=== PATIENT | female | born 1955 | race Caucasian/White ===

== ENCOUNTER 2017-05-05 14:03 | Emergency (ER) | payer MEDICARE ==
[2017-05-05] MEDS ORDERED: MOTRIN 600 MG PO ONE (14:09)
[2017-05-05] MEDS ORDERED: MOTRIN 600 MG ONE (14:15)
--- NOTE | 2017-05-05 14:15 | ERPHSYRPT ---
- History of Present Illness Time Seen by Provider: 05/05/17 14:05 Source: patient Exam Limitations: no limitations Physician History: developed pain in left foot while walking thru trailer recently; no known injury ; no prior hx; no other complaints; pain increased when walks on or flexes; ; no fever Method of Injury: unknown Occurred: yesterday Quality: constant (with wt bearing only), intermittent (only when bears wt on it.), burning Severity of Pain-Max: severe (when wt bearing) Severity of Pain-Current: none (at rest and elevated) Lower Extremities Pain: foot: left (medial aspect) Modifying Factors: Improves With: cold therapy (helps), immobilization (helps), movement (aggravates) Associated Symptoms: unable to bear weight (without severe pain) Allergies/Adverse Reactions: oxytetracycline [From Terramycin] Allergy (Mild, Verified 05/05/17 14:17) oxytetracycline HCl [From Terramycin] Allergy (Mild, Verified 05/05/17 14:17) amoxicillin trihydrate [From Augmentin] Adverse Reaction (Mild, Verified 14:17) HIVES potassium clavula *RETIRED-02/03/13 [From Augmentin] Adverse Reaction (Mild, Verified 05/05/17 14:17) HIVES Home Medications: Albuterol 17 gm IH UD 05/05/17 [History] Hx Tetanus, Diphtheria Vaccination/Date Given: No - Review of Systems Constitutional: No Symptoms Eyes: No Symptoms Ears, Nose, & Throat: No Symptoms Respiratory: No Cough, No Dyspnea, No Wheezing Cardiac: No Chest Pain, No Palpitations, No Syncope Abdominal/Gastrointestinal: No Abdominal Pain, No Nausea, No Vomiting, No Diarrhea Genitourinary Symptoms: No Symptoms Musculoskeletal: Injury (? left foot- unknown how), Joint Pain (medial aspect left foot proximal) Skin: No Symptoms Neurological: No Symptoms Psychological: No Symptoms Endocrine: No Symptoms Hematologic/Lymphatic: No Symptoms Immunological/Allergic: No Symptoms - Past Medical History Pertinent Past Medical History: Yes Respiratory History: COPD Endocrine Medical History: Diabetes Type II Musculoskeletal History: Arthritis, Osteoarthritis, Osteoporosis - Past Surgical History Past Surgical History: Yes Musculoskeletal: Orthopedic Surgery Female Surgical History: Tubal Ligation - Social History Smoking Status: Current every day smoker Exposure to second hand smoke: Yes Alcohol Use: None Drug Use: none Patient Lives Alone: Yes Significant Family History: diabetes, hypertension - Female History Hx Now: No - Nursing Vital Signs Nursing Vital Signs: Initial Vital Signs Temperature 98.3 F 05/05/17 14:12 Pulse Rate 85 05/05/17 14:12 Respiratory Rate 22 05/05/17 14:12 Blood Pressure 166/88 05/05/17 14:12 O2 Sat by Pulse Oximetry 96 05/05/17 14:12 Pain Scale Pain Intensity 5 - Physical Exam General Appearance: mild distress (pasin left foot ), alert, obese Eyes, Ears, Nose, Throat Exam: normal ENT inspection, pharynx normal, moist mucous membranes Neck Exam: normal inspection, non-tender, supple, full range of motion, No JVD Cardiovascular/Respiratory Exam: chest non-tender, normal breath sounds, regular rate/rhythm, heart sounds normal, no ecchymosis, no JVD, no M/R/G, no respiratory distress Gastrointestinal/Abdominal Exam: non-tender, soft, no organomegaly Back Exam: normal inspection, normal range of motion, No CVA tenderness Hips Exam: bilateral: non-tender, normal inspection, normal range of motion, no evidence of injury Legs Exam: bilateral leg: non-tender, normal inspection, normal range of motion , no evidence of injury Knees Exam: bilateral knee: non-tender, normal inspection, normal range of motion, no evidence of injury Ankle Exam: right ankle: normal range of motion, left ankle: limited range of motion (ankle due to pain in the foot), bilateral ankle: non-tender, normal inspection, no evidence of injury Foot Exam: right foot: non-tender, normal inspection, normal range of motion, no evidence of injury, left foot: bone tenderness (medial aspect), pain (medial left foot), soft tissue tenderness (medial left foot), swelling (medial left foot) DTR - Lower Extremities Exam: knee (R): 4+, knee (L): 4+ Neuro/Tendon Exam: normal sensation, normal motor functions, normal tendon functions, responds to pain, no evidence tendon injury Mental Status Exam: alert, oriented x 3, cooperative Skin Exam: normal color, warm, dry, No rash Procedures - Splinting Location of Splint: Left, Foot Type of Splint: Other (shi wrap and crutches) Splint Applied By: Other Pre-Proc Neuro Vasc Exam: normal Post-Proc Neuro Vasc Exam: neurovascular intact - Course Nursing assessment & vital signs reviewed: Yes - Radiology Exams Left Foot X-ray Interpretation: Interpreted by me, No Fracture, Other (DJD; osteoarthritis medial aspect distal tibia/foot; ) Ordered Tests: Active Orders 24 hr Category Date Time Status Cold Application STAT Care 05/05/17 14:09 Active Crutches STAT Care 05/05/17 14:34 Ordered Splint STAT Care 05/05/17 14:34 Ordered FOOT (MINIMUM 3 VIEWS) Stat Exams 05/05/17 14:09 Taken Medication Summary Discontinued Medications Generic Name Dose Route Start Last Admin Trade Name Freq PRN Reason Stop Dose Admin Ibuprofen 600 mg 05/05/17 14:09 05/05/17 14:17 Motrin 600 Mg PO 05/05/17 14:10 600 mg STAT ONE Administration Ibuprofen Confirm 05/05/17 14:15 Motrin 600 Mg Administered 05/05/17 14:16 Dose 600 mg .ROUTE .STK-MED ONE - Progress Progress: re-examined (after meds and ex) Progress Note: 05/05/17 14:17 ice applied; meds given; will get xr and recheck 05/05/17 14:37 recheck after xr; results and instructions given, shi wrap and cruthes wit instructions Counseled pt/family regarding: diagnosis, rad results, smoking cessation - Departure Time of Disposition: 14:38 Departure Disposition: Home Clinical Impression: Osteoarth NOS-ankle Condition: Stable Critical Care Time: No Instructions: Foot Pain Additional Instructions: crutches; ice; no wt bearing 48-72 hours; follow up Dr Tri Helm Follow-up with family doctor as directed. Call for appointment. Return if any problems. If you smoke please stop. Call or follow up with your family doctor for assistance if you need it to stop. Please wear your seatbelt when driving. Have a nice day. Thank you for allowing us to participate in your care today. :o) Dr Chintan Arnold Prescriptions: Naproxen Sodium [Anaprox Ds] 550 mg PO Q6-8HPRN PRN #14 tablet PRN Reason: Pain
[2017-05-05 14:43] VITALS: BP 157/83; PULSE 78; O2SAT 95
--- NOTE | 2017-05-05 14:53 | XRAY ---
Indication: Medial foot pain following injury 3 days ago. Comparison: None 3 nonweightbearing views of the left foot demonstrates tiny heel spurs, mild 1st MTP DJD, cuboid accessory ossicle, and medial malleolar tip well-circumscribed ossifications either degenerative versus old injury. No other bony, articular, or soft tissue abnormalities.
== END 2017-05-05 14:46 | disposition home or self-care (01) ==
LOC: ED 14:03
DX: M19.079 Primary osteoarthritis, unspecified ankle and foot (principal); M79.672 Pain in left foot; J44.9 Chronic obstructive pulmonary disease, unspecified
CPT/HCPCS: 73630; 99282; 99283; A9270-GY

== ENCOUNTER 2018-07-03 19:59 | Emergency (ER) | payer MEDICARE ==
--- NOTE | 2018-07-03 20:03 | ERPHSYRPT ---
- History of Present Illness Time Seen by Provider: 07/03/18 20:03 Source: patient, family Exam Limitations: no limitations Physician History: 63 y/o white female with h/o copd, recurrent bronchitis and pneumonia and continues to smokepresents with cough and fever for last few days. pt has intermittently been on prednisone and levaquin on two occasions for tx of pneumonia per pt. Timing/Duration: day(s) (a few ) Cough Quality/Degree: mild, productive cough (greeenish sputum) Possible Cause: occasional episodes Modifying Factors: Improves With: coughing, other (increase in her smoking recently) Associated Symptoms: fever, cough, No chills, No shortness of breath, No sore throat, No wheezing Allergies/Adverse Reactions: oxytetracycline [From Terramycin] Allergy (Mild, Verified 07/03/18 20:21) oxytetracycline HCl [From Terramycin] Allergy (Mild, Verified 07/03/18 20:21) amoxicillin trihydrate [From Augmentin] Adverse Reaction (Mild, Verified 20:21) HIVES potassium clavula *RETIRED-02/03/13 [From Augmentin] Adverse Reaction (Mild, Verified 07/03/18 20:21) HIVES Home Medications: Albuterol Sulfate [Proair Hfa] 1 puffs IH QID PRN 07/03/18 [History] Aspirin EC 81 mg [Ecotrin 81 mg] 81 mg PO DAILY 07/03/18 [History] Atorvastatin Calcium [Lipitor] 10 mg PO DAILY 07/03/18 [History] Ca/D3/Mag Ox/Zinc/Maritime Pilot/Patel/Bor [Calcium 600+D3 Plus Caplet] 1 each PO BID [History] Fish Oil/Dha/Epa [Fish Oil 1,200 mg Fish Oil] 1 cap PO DAILY 07/03/18 [History] Fluticasone/Umeclidin/Vilanter [Trelegy Ellipta 100-62.5-25] 1 each IH DAILY [History] Ipratropium/Albuterol Sulfate [Iprat-Albut 0.5-3(2.5) mg/3 ml] 3 ml IH QID PRN 07/03/18 [History] Levocetirizine Dihydrochloride [24Hr Allergy Relief] 5 mg PO DAILY 07/03/18 [ History] Losartan/Hydrochlorothiazide [Losartan-Hctz 100-12.5 mg Tab] 1 each PO DAILY [History] Metformin HCl 500 mg [Glucophage 500 MG] 500 mg PO BID 07/03/18 [History] Ranitidine HCl [Zantac] 150 mg PO DAILY 07/03/18 [History] Hx Tetanus, Diphtheria Vaccination/Date Given: No Hx Influenza Vaccination/Date Given: Yes Hx Pneumococcal Vaccination/Date Given: No - Review of Systems Constitutional: Fever, No Chills, No Weakness Eyes: No Symptoms, No Eye Pain Ears, Nose, & Throat: No Symptoms, No Ear Pain, No Ear Discharge, No Nose Congestion, No Throat Pain Respiratory: Cough, Dyspnea (no different than usual) Cardiac: No Symptoms, No Palpitations, No Syncope Abdominal/Gastrointestinal: No Symptoms, No Abdominal Pain, No Nausea, No Vomiting, No Diarrhea Genitourinary Symptoms: No Symptoms, No Dysuria, No Frequency, No Hematuria Musculoskeletal: No Symptoms, No Back Pain, No Fall, No Injury Skin: No Symptoms Neurological: No Symptoms Psychological: No Symptoms Endocrine: No Symptoms Hematologic/Lymphatic: No Symptoms Immunological/Allergic: No Symptoms All Other Systems: Reviewed and Negative - Past Medical History Pertinent Past Medical History: Yes Neurological History: No Pertinent History ENT History: No Pertinent History Cardiac History: No Pertinent History Respiratory History: No Pertinent History, COPD Endocrine Medical History: No Pertinent History, Diabetes Type II Musculoskeletal History: No Pertinent History, Arthritis, Osteoarthritis, Osteoporosis GI Medical History: No Pertinent History History: No Pertinent History Psycho-Social History: No Pertinent History Female Reproductive Disorders: No Pertinent History - Past Surgical History Past Surgical History: Yes Neuro Surgical History: No Pertinent History Cardiac: No Pertinent History Respiratory: No Pertinent History Gastrointestinal: No Pertinent History Genitourinary: No Pertinent History Musculoskeletal: Orthopedic Surgery Female Surgical History: Tubal Ligation - Social History Smoking Status: Current every day smoker How long have you smoked: YRS Exposure to second hand smoke: Yes Alcohol Use: None Drug Use: none Patient Lives Alone: Yes Significant Family History: diabetes, hypertension - Nursing Vital Signs Nursing Vital Signs: Initial Vital Signs Temperature 100.9 F 07/03/18 20:04 Pulse Rate 99 H 07/03/18 20:04 Respiratory Rate 12 07/03/18 20:04 Blood Pressure 156/76 07/03/18 20:04 O2 Sat by Pulse Oximetry 93 L 07/03/18 20:04 Pain Scale Pain Intensity 8 - Physical Exam General Appearance: mild distress, alert Eye Exam: PERRL/EOMI, eyes nml inspection Ears, Nose, Throat Exam: normal ENT inspection Neck Exam: normal inspection, non-tender, supple, full range of motion Respiratory Exam: normal breath sounds, lungs clear, airway intact, No chest tenderness, No respiratory distress, No accessory muscle use, No rhonchi, No wheezing, No stridor Cardiovascular Exam: regular rate/rhythm, normal heart sounds, normal peripheral pulses Gastrointestinal/Abdomen Exam: soft, normal bowel sounds, No tenderness, No guarding, No rebound Pelvic Exam: not done Rectal Exam: not done Back Exam: normal inspection, normal range of motion, No CVA tenderness, No vertebral tenderness Extremity Exam: normal inspection, normal range of motion, pelvis stable Neurologic Exam: alert, oriented x 3, cooperative, skiver welt end II-XII nml as tested Skin Exam: normal color, warm, dry Lymphatic Exam: No adenopathy SpO2 Interpretation: normal Oxygen Delivery: Room Air Ordered Tests: Active Orders 24 hr Category Date Time Status IV Insertion STAT Care 07/03/18 20:49 Active CHEST 1 VIEW (PORTABLE) Stat Exams 07/03/18 20:49 Taken BLOOD CULTURE Stat Lab 07/03/18 21:08 Received CBC W DIFF Stat Lab 07/03/18 21:07 Completed CMP Stat Lab 07/03/18 21:07 Completed CULTURE,SPUTUM Stat Lab 07/03/18 20:49 Uncollected Lactic Acid Stat Lab 07/03/18 21:00 Results Medication Summary Generic Name Dose Route Start Last Admin Trade Name Freq PRN Reason Stop Dose Admin Fluconazole 100 mg 07/04/18 20:51 07/03/18 21:05 Diflucan 100 Mg PO 07/04/18 20:52 100 mg STAT ONE Administration Sodium Chloride 1,000 mls @ 999 mls/hr 07/03/18 20:49 07/03/18 21:04 Sodium Chloride 0.9% 1000 Ml IV 07/03/18 21:49 999 mls/hr .Q1H1M STA Administration Discontinued Medications Generic Name Dose Route Start Last Admin Trade Name Freq PRN Reason Stop Dose Admin Fluconazole Confirm 07/03/18 21:01 Diflucan 100 Mg Administered 07/03/18 21:02 Dose 100 mg .ROUTE .STK-MED ONE Ceftriaxone Sodium/Dextrose 1 g in 50 mls @ 100 mls/hr 07/03/18 20:49 21:04 Rocephin 1 Gm-D5w 50 Ml Bag IV 07/03/18 21:18 100 mls/hr STAT STA 100 mls/hr Administration Sodium Chloride Confirm 07/03/18 20:56 Sodium Chloride 0.9% 1000 Ml Administered 07/03/18 20:57 Dose 1,000 mls @ ud .ROUTE .STK-MED ONE Ceftriaxone Sodium/Dextrose Confirm 07/03/18 20:56 Rocephin 1 Gm-D5w 50 Ml Bag Administered 07/03/18 20:57 Dose 1 g in 50 mls @ ud IV .STK-MED ONE Methylprednisolone Sodium Succinate 125 mg 07/03/18 20:49 07/03/18 21:05 Solu-Medrol 125 Mg IV 07/03/18 20:50 125 mg STAT ONE Administration Methylprednisolone Sodium Succinate Confirm 07/03/18 20:56 Solu-Medrol 125 Mg Administered 07/03/18 20:57 Dose 125 mg .ROUTE .STK-MED ONE Lab/Rad Data: Laboratory Result Diagrams 07/03/18 21:07 07/03/18 21:07 Laboratory Results 07/03/18 07/03/18 07/03/18 Range/Units 21:07 21:07 21:00 WBC 15.0 H (4.0-10.5) K/mm3 RBC 4.93 (4.1-5.4) M/mm3 Hgb 15.6 (12.0-16.0) gm/dl Hct 45.5 (35-47) % MCV 92.3 (78-100) fl MCH 31.6 (26-32) pg MCHC 34.3 (32-36) g/dl RDW 13.6 (11.5-14.0) % Plt Count 228 (150-450) K/mm3 MPV 9.5 (6-9.5) fl Gran % 62.0 (36.0-66.0) % Eos # (Auto) 0.36 (0-0.5) Absolute Lymphs (auto) 4.20 (1.0-4.6) Absolute Monos (auto) 1.09 (0.0-1.3) Lymphocytes % 28.0 (24.0-44.0) % Monocytes % 7.3 (0.0-12.0) % Eosinophils % 2.4 (0.00-5.0) % Basophils % 0.3 (0.0-0.4) % Absolute Granulocytes 9.30 H (1.4-6.9) Basophils # 0.04 (0-0.4) Sodium 138 (137-145) mmol/L Potassium 3.7 (3.5-5.1) mmol/L Chloride 101 (98-107) mmol/L Carbon Dioxide 24 (22-30) mmol/L Anion Gap 16.5 H (5-15) MEQ/L BUN 8 (7-17) mg/dL Creatinine 0.70 (0.52-1.04) mg/dL Estimated GFR > 60.0 ML/MIN Glucose 149 H (74-106) mg/dL Lactic Acid 2.0 (0.4-2.0) Calcium 10.2 (8.4-10.2) mg/dL Total Bilirubin 0.70 (0.2-1.3) mg/dL AST 27 (14-36) U/L ALT 27 (0-35) U/L Alkaline Phosphatase 91 (38-126) U/L Serum Total Protein 8.4 H (6.3-8.2) g/dL Albumin 4.6 (3.5-5.0) g/dL - Progress Progress: improved, re-examined Air Movement: good Progress Note: 07/03/18 21:54 pt states she is breathing better. pt does not want any narcotic cough suppressant elixirs. Blood Culture(s) Obtained: Yes Antibiotics given: Yes Counseled pt/family regarding: lab results, diagnosis, need for follow-up, rad results, smoking cessation (4 minutes in the presence of pts daughter. d/w pt risks of continued smoking and the benefits of stopping) - Departure Time of Disposition: 21:56 Departure Disposition: Home Clinical Impression: Bronchitis, Fever Condition: Stable Critical Care Time: No Referrals: AWAIS MERAZ [Primary Care Provider] - Additional Instructions: stop smoking. drink plenty of fluids. use tylenol and ibuprofen for fever if not allergic. follow up with your workers compensation claims specialist fridayjuly [id number] for further management. return to ED if symptoms worsen. Prescriptions: Azithromycin 250 mg [Zithromax 250 MG TABLET] 250 mg PO ZPACK #6 tablet Fluconazole 100 mg [Diflucan 100 MG] 100 mg PO DAILY #1 tablet Prednisone 10 mg [Deltasone 10 mg] 10 mg PO TID #12 tablet
[2018-07-03] MEDS ORDERED: solu-MEDROL 125 MG IV ONE (20:49)
[2018-07-03] MEDS ORDERED: ROCEPHIN 1 Gm-D5w 50 ml Bag** 1 G/50 ML IVPB IV STA (20:49)
[2018-07-03] MEDS ORDERED: Sodium Chloride 0.9% 1000 ML 1,000 ML IV STA (20:49)
[2018-07-03] MEDS ORDERED: solu-MEDROL 125 MG ONE (20:56)
[2018-07-03] MEDS ORDERED: Sodium Chloride 0.9% 1000 ML 1,000 ML ONE (20:56)
[2018-07-03] MEDS ORDERED: ROCEPHIN 1 Gm-D5w 50 ml Bag** 1 G/50 ML IVPB IV ONE (20:56)
[2018-07-03] MEDS ORDERED: Diflucan 100 MG ONE (21:01)
[2018-07-03 21:11] LABS: BASOPHIL % 0.3 % (0.0-0.4); Basophil (Absolute #) 0.04 (0-0.4); Eosinophil % 2.4 % (0.00-5.0); Eosinophil (Absolute #) 0.36 (0-0.5); Hematocrit 45.5 % (35-47); Hemoglobin 15.6 gm/dl (12.0-16.0); Mean Cell Volume 92.3 fl (78-100); Mean Corpuscular Hemoglobin 31.6 pg (26-32); Mean Corpuscular Hgb Concent. 34.3 g/dl (32-36); Mean Platelet Volume 9.5 fl (6-9.5); Monocyte (Absolute #) 1.09 (0.0-1.3); Monocytes % 7.3 % (0.0-12.0); Platelet Count 228 K/mm3 (150-450); Red Blood Count 4.93 M/mm3 (4.1-5.4); Red Cell Distribution Width 13.6 % (11.5-14.0)
[2018-07-03 21:25] LABS: ALBUMIN 4.6 g/dL (3.5-5.0); ALKALINE PHOSPHATASE 91 U/L (38-126); ANION GAP 16.5 MEQ/L (5-15); BLOOD UREA NITROGEN 8 mg/dL (7-17); CHLORIDE 101 mmol/L (98-107); Calcium 10.2 mg/dL (8.4-10.2); Carbon Dioxide 24 mmol/L (22-30); Glucose 149 mg/dL (74-106); Potassium 3.7 mmol/L (3.5-5.1); SGOT/AST 27 U/L (14-36); SGPT/ALT 27 U/L (0-35); SODIUM 138 mmol/L (137-145); Total Protein 8.4 g/dL (6.3-8.2)
[2018-07-03 22:12] VITALS: BP 113/61; PULSE 75; O2SAT 96
--- NOTE | 2018-07-03 22:19 | XRAY ---
Indication: Fever and cough. Comparison: March 11, 2018. Portable chest is now clear. Heart and mediastinal structures within normal limits for AP portable technique. Bony thorax intact. Impression: Nonacute chest.
[2018-07-04] MEDS ORDERED: Diflucan 100 MG PO ONE (20:51)
== END 2018-07-03 22:20 | disposition home or self-care (01) ==
LOC: ED 19:59
DX: J40 Bronchitis, not specified as acute or chronic (principal); Z79.899 Other long term (current) drug therapy; E11.9 Type 2 diabetes mellitus without complications; Z79.84 Long term (current) use of oral hypoglycemic drugs
CPT/HCPCS: 36415; 71045; 80053; 83605; 85025; 87040; 96360; 96365; 96374; 96375; 99284; J0696; J2930; A9270-GY

== ENCOUNTER 2025-07-04 08:58 | Day surgery (SDC) | payer MEDICARE ==
--- NOTE | 2025-07-03 14:38 | HP ---
HISTORY OF PRESENT ILLNESS: A 70-year-old seen in March with hematemesis. No endoscopy at that time. She was told she had cirrhosis of the liver. No prior colonoscopy. requested EGD and colonoscopy. FAMILY HISTORY: Family history negative for colon cancer. Family history of diabetes, heart disease, lung cancer. PAST MEDICAL HISTORY: COPD, cirrhosis, type 2 diabetes, history of ulcer and GI bleed in the past. History of heart disease, hypertension. PAST SURGICAL HISTORY: Cataract, colon surgery, had a cholecystectomy in the past, laparoscopy in the past, carpal tunnel release in the past, cardiac catheterization in the past, bilateral tubal in the past. SOCIAL HISTORY: No smoking or alcohol abuse. MEDICATIONS: Albuterol sulfate, albuterol budesonide, spironolactone, glimepiride, aspirin, furosemide, isosorbide mononitrate, and Brilinta. ALLERGIES: Augmentin, as well Terramycin. REVIEW OF SYSTEMS: Twelve systems reviewed. No chest pain or palpitations. Pertinent for significant chronic lung disease as mentioned above. She had a history of MN and heart cath in the past. PHYSICAL EXAMINATION: GENERAL: Height 5 foot 4 inches. BMI 32.1. No acute distress. HEENT: Sclerae nonicteric. Extraocular movements intact. NECK: No JVD. CHEST: Equal excursion, nonlabored breathing. CARDIOVASCULAR: Regular rate and rhythm. ABDOMEN: Soft. EXTREMITIES: Without cyanosis or edema. NEUROLOGIC: Alert and oriented, moving all extremities symmetrically. PSYCHIATRIC: Appropriate mood and affect. SKIN: Dry. RECTAL: Deferred until time of endoscopic exam. IMPRESSION: Request from Hepatology for screening colonoscopy, as well as upper endoscopy. History of hematemesis in the past few months. Shown the risk sheet, explained procedure in detail including but not limited to, bleeding or infection; risk of bowel injury or perforation possibly requiring need for other procedure; risk of missed or nondiagnosis or incomplete exam possibly requiring barium swallow, barium enema or other studies or procedures; general risk of anesthesia and sedation; risk of bowel prep but not limited to. Will proceed with outpatient EGD, colonoscopy as requested per Hepatology. I would like her to hold thinners preop and continue the medications for her heart disease and hypertension.
[2025-07-04 09:54] LABS: Calcium 9.3 mg/dL (8.4-10.2); Carbon Dioxide 18.0 mmol/L (22-30); Creatinine 1 0.67 mg/dL (0.52-1.04); EST GLOMERULAR FILTRATION RATE 94.6 ML/MIN; Glucose 109.0 mg/dL (74-106); Potassium 4.8 mmol/L (3.5-5.1); SGOT/AST 67.0 U/L (14-36); SGPT/ALT 25.0 U/L (0-35); Total Protein 8.6 g/dL (6.3-8.2)
[2025-07-04] MEDS ORDERED: propofoL IV ONE ×3 (11:40→12:07)
[2025-07-04 12:53] VITALS: O2SAT 94
[2025-07-04 13:06] VITALS: BP 144/77; PULSE 77; RESP 18; TEMP 97.9
--- NOTE | 2025-07-05 10:49 | OP ---
SURGERY DATE/TIME: 07/04/2025 [id number] PREOPERATIVE DIAGNOSIS: History of cirrhosis, [facility] requesting upper endoscopy to evaluate for varices as well as screening colonoscopy. POSTOPERATIVE DIAGNOSES: 1) ASA class 4. 2) Esophageal varices extending from 40 cm up to 23 cm, moderate esophageal varices. 3) Moderate gastritis. 4) Colon polyps and diverticulosis. 5) Prep was only fair, on the limited side. 6) Withdrawal time 12 minutes. PROCEDURE: 1) Esophagogastroduodenoscopy, cold biopsy antrum for H. pylori. 2) Colonoscopy to cecum, hot biopsy, piecemeal polypectomy, transverse colon polyps x2, ascending colon polyp x1. 3) Hot biopsy polypectomy sigmoid colon polyps x2 and rectal polyps x4. SURGEON: Sesar Erickson MD ANESTHESIA: MAC. ESTIMATED BLOOD LOSS: Minimal. INDICATIONS: Above. Risks and benefits explained in detail. Consent obtained. DESCRIPTION OF PROCEDURE AND FINDINGS: Patient taken to the endoscopy room. MAC anesthesia induced. After official time-out and no disagreement in planned procedure, bite block positioned. Videogastroscope passed down the esophagus through patent pylorus to the junction of third and fourth portions of duodenum. Duodenum grossly unremarkable. Back in the stomach, had some moderate gastritis. There was no evidence of any ulcers. Cold biopsy taken in the antrum for H. pylori. On retroflexion, there did not appear to be any large gastric varices at the moment. The scope was pulled back up in the esophagus and from the GE junction which was fairly smooth at 40 cm extending up at least to 22 or 23 cm was moderate esophageal varices. No active bleeding apparently. No signs of any masses. Scope was withdrawn. Attention then turned to colonoscopy. Digital rectal exam did not reveal any masses. She did have some internal and external hemorrhoids. Videocolonoscope inserted, passed up through the tortuous sigmoid, descending, transverse, and ascending colon. With external pressure, scope was then passed around to the cecum. Appendiceal orifice and valve well visualized. Prep overall was fair, on the limited side, with liquidy, semisolid and a few solid stool chunks. Scope was carefully withdrawn. There was a polyp in the ascending colon 4 mm in sized removed with hot biopsy, piecemeal polypectomy and another couple of 3 to 4 mm polyps in the transverse colon removed with hot, piecemeal polypectomy. Good hemostasis noted. Scope pulled back to the sigmoid colon where a couple hyperplastic-appearing polyps removed with hot biopsy forceps and then in the rectum 4 additional smooth hyperplastic-appearing polyps removed with hot biopsy forceps. Good hemostasis noted. She did have some internal and external hemorrhoids. The patient tolerated the procedure well with no immediate complications.
== END 2025-07-04 13:20 | disposition home or self-care (01) ==
LOC: SDC 08:58
PROVIDERS: ATTEND Surgery
DX: Z12.11 Encounter for screening for malignant neoplasm of colon (principal); E11.9 Type 2 diabetes mellitus without complications; I10 Essential (primary) hypertension; K74.60 Unspecified cirrhosis of liver; I85.00 Esophageal varices without bleeding; K29.70 Gastritis, unspecified, without bleeding; K57.30 Diverticulosis of large intestine without perforation or abscess without bleeding; D12.7 Benign neoplasm of rectosigmoid junction; D12.2 Benign neoplasm of ascending colon; D12.5 Benign neoplasm of sigmoid colon; D12.3 Benign neoplasm of transverse colon